=== PATIENT | male | born 1995 | race Caucasian/White ===

== ENCOUNTER 2016-09-27 05:35 | Outpatient (CLI) | payer BC ==
[~2016-09-27] VITALS: Ht 185.4 cm; Wt 103.9 kg
[2016-09-27] MEDS ORDERED: DIPH25CA79 PO (09:53)
[2016-09-27 09:55] VITALS: BP 127/79
[2016-09-27 10:17] LABS: BASOPHILS % (AUTO) 1 % (0-10); EOSINOPHILS # (AUTO) 0.1 10^3/uL (0.0-0.3); EOSINOPHILS % (AUTO) 2 % (0-10); LYMPHOCYTES # (AUTO) 2.1 X 10^3 (1.0-4.0); LYMPHOCYTES % (AUTO) 32 % (12-44); MEAN CORPUSCULAR HEMOGLOBIN 27 PG (25-34); MEAN CORPUSCULAR HGB CONC 34 G/DL (32-36); MEAN CORPUSCULAR VOLUME 81 FL (80-99); MEAN PLATELET VOLUME 9.9 FL (7.4-10.4); MONOCYTES # (AUTO) 0.7 X 10^3 (0.0-1.0); MONOCYTES % (AUTO) 11 % (0-12); NEUTROPHILS # (AUTO) 3.5 X 10^3 (1.8-7.8); NEUTROPHILS % (AUTO) 54 % (42-75); PLATELET COUNT 333 10^3/uL (130-400); RED BLOOD COUNT 5.86 10^6/uL (4.35-5.85); RED CELL DISTRIBUTION WIDTH 13.2 % (10.0-14.5); WHITE BLOOD COUNT 6.5 10^3/uL (4.3-11.0)
== END 2016-09-27 13:10 | disposition home or self-care (01) ==
LOC: PREOP 05:35
PROVIDERS: ATTEND Surgery Pediatric Surgery
DX: Z01.812 Encounter for preprocedural laboratory examination (principal); Z11.2 Encounter for screening for other bacterial diseases; K40.90 Unilateral inguinal hernia, without obstruction or gangrene, not specified as recurrent
CPT/HCPCS: 36415; 85025; 87081

== ENCOUNTER 2016-09-29 10:15 | Day surgery (SDC) | payer BC ==
[~2016-09-29] VITALS: Ht 185.4 cm; Wt 103.9 kg
[~2016-09-29 10:15] MED LIST: DIPH25CA79 PO
[2016-09-29 10:30] VITALS: BP 135/85
[2016-09-29] MEDS ORDERED: ceFAZolin 1 GM/NS 50 ML IVPB IV ONE ×2 (11:00)
[2016-09-29] MEDS ORDERED: BUP/EPI 0.25% 1:200,000 (MARCAINE) 30 ML VIAL ONE (12:18)
[2016-09-29] MEDS ORDERED: ROCURONIUM 50 MG/5 ML (ZEMURON) VIAL IV ONE ×2 (12:48→14:36)
[2016-09-29] MEDS ORDERED: MIDAZOLAM 2 MG/2 ML (VERSED) VIAL ONE (12:48)
[2016-09-29] MEDS ORDERED: fentaNYL INJECTION 250 MCG/5 ML AMP ONE (12:48)
[2016-09-29] MEDS ORDERED: proPOfol 200 MG/20 ML (DIPRIVAN) VIAL IV ONE (12:48)
[2016-09-29] MEDS: LACTATED RINGERS 1,000 ML IV PRN ×3 (12:51→15:09)
--- NOTE | 2016-09-29 13:24 | Progress Note-Pre Operative ---
Pre-Operative Progress Note H&P Reviewed The H&P was reviewed, patient examined and no changes noted. Date H&P Reviewed: Sep 29, 2016 Time H&P Reviewed: 13:00 Pre-Operative Diagnosis: symptomatic left inguinal hernia OSCAR COHEN MD Sep 29, 2016 1:24 pm
[2016-09-29] MEDS ORDERED: morphine INJ 10 MG/ML 1ML (SYR OR VIAL) IVP PRN (13:30)
[2016-09-29] MEDS ORDERED: ACETAMINOPHEN 325 MG TABLET/CAPLET (TYLENOL) PO PRN (13:30)
[2016-09-29] MEDS ORDERED: oxyCODONE/APAP 5/325MG (PERCOCET 5) TABLET PO PRN (13:30)
[2016-09-29] MEDS ORDERED: ONDANSETRON 4 MG/2 ML (SDV) Z0FRAN IVP PRN ×2 (13:30→15:30)
[2016-09-29] MEDS ORDERED: SEVOFLURANE (ULTANE) 15 ML INHAL SOLN ONE ×2 (13:47→15:07)
[2016-09-29] MEDS ORDERED: LACTATED RINGERS 2,000 ML IV ONE (13:47)
[2016-09-29] MEDS ORDERED: ONDANSETRON 4 MG/2 ML (SDV) Z0FRAN ONE ×2 (13:47→14:45)
[2016-09-29] MEDS ORDERED: MEPERIDINE (DEMEROL) INJ 50 MG/ML ONE (14:45)
[2016-09-29] MEDS ORDERED: morphine INJ 10 MG/ML 1ML (SYR OR VIAL) ONE (14:45)
[2016-09-29] MEDS ORDERED: GLYCOPYRROLATE 0.2 MG/ML (ROBINUL) 2 ML VIAL ONE (14:53)
[2016-09-29] MEDS ORDERED: NEOSTIGMINE (BLOXIVERZ ) 1 MG/1ML 10 ML VIAL ONE (14:53)
--- NOTE | 2016-09-29 15:01 | Progress Note-Post Operative ---
Post-Operative Progess Note Surgeon (s)/Health Economist (s) Surgeon OSCAR COHEN MD Health Economist: gayle chaves [employer] Pre-Operative Diagnosis symptomatic right inguinal hernia Post-Operative Diagnosis same(indirect) Post-Op Procedure Note Date of Procedure: Sep 29, 2016 Name of Procedure Performed: laparoscopic right inguinal hernia repair with mesh. Description of the Procedure: laparoscopic right inguinal hernia repair with mesh. Findings of the Procedure . Anesthesia Type GET Estimated blood loss (mL): minimal Specimen(s) collected/removed none OSCAR COHEN MD Sep 29, 2016 3:01 pm
[2016-09-29] MEDS ORDERED: HYDR-3730 PO (15:02)
--- NOTE | 2016-09-29 15:03 | Discharge Inst-Surgical ---
D/C Lap Instructions-VICKI New, Converted, or Re-Newed RX: RX on Chart Follow Up Appt in 2 weeks Activity as tolerated No driving for 24 hours No driving while on pain medications Incentive Spirometry use every 2 hours while awake Regular Diet Symptoms to Report: Fever over 101 degree F, Nausea/Vomiting Infection Signs and Symptoms to report: Increased redness, Foul odor of wound, Increased drainage Bathing instructions: May shower Operative Area Clean/Dry; Keep incision clean/dry If any problems/questions: Contact your physician or go to Emergency Room OSCAR COHEN MD Sep 29, 2016 3:03 pm
[2016-09-29] MEDS ORDERED: LACTATED RINGERS 1,000 ML IV ONE (15:07)
[2016-09-29] MEDS: morphine INJ 10 MG/ML 1ML (SYR OR VIAL) IVP PRN ×3 (15:27→15:38)
[2016-09-29] MEDS ORDERED: KETOROLAC 30 MG/ML VIAL IVP ONE (15:30)
[2016-09-29] MEDS ORDERED: MEPERIDINE (DEMEROL) INJ 50 MG/ML IVP PRN (15:30)
[2016-09-29] MEDS ORDERED: fentaNYL INJECTION 100 MCG/2 ML AMP IVP PRN (15:30)
[2016-09-29] MEDS ORDERED: HYDROmorphone (DILAUDID) 2 MG/ML VIAL IVP PRN (15:30)
[2016-09-29] MEDS ORDERED: HYDROmorphone (DILAUDID) 2 MG/ML VIAL ONE (15:37)
[2016-09-29 16:10] VITALS: BP 134/74
[2016-09-29 16:40] VITALS: BP 133/74
[2016-09-29 17:00] VITALS: BP 128/73
[2016-09-29 17:15] VITALS: BP 128/73
--- NOTE | 2016-09-30 10:28 | OPERATIVE REPORT ---
PROCEDURE PHYSICIAN: OSCAR COHEN DATE OF PROCEDURE: 09/29/2016 ATTENDING PRIMARY CARE PHYSICIAN: Dr. Carson. BRIEF HISTORY: Mr. Nazario Feliciano is a 20-year-old male who is referred over to us for pain and swelling, as well as a palpable bulge in the right inguinal region. He reports the symptoms have been here for the past 5 years. However in the last month it has become significantly larger in size and more painful. Upon examination, he was found to have a significant bulge emanating from the inguinal ligament that went into the scrotum. This was reducible; however, tender to palpation. He states he is otherwise doing well and tolerating a regular diet and having normal bowel movements. PROCEDURE: The patient was brought to the operating room and laid supine on the table. After adequate IV pain and sedative medications and general endotracheal intubation the abdomen and perineum were prepped and draped in standard surgical fashion. 0.5% Marcaine with epinephrine was used to anesthetize the infraumbilical rim and a small crescent shaped skin incision made using a 15 blade. A towel clamp was used to retract the abdominal wall anteriorly and a Veress needle inserted with a low opening pressure of 0 mmHg. The abdomen was insufflated to 15 mmHg pressure. The Veress needle removed and a 5 mm Xcel trocar placed followed by a 5 mm, 45 degrees angle laparoscope, visualizing the peritoneal cavity. A four-quadrant abdominal exploration was performed. There was a right indirect inguinal hernia with omentum incarcerated within the hernia sac. There was no left inguinal hernia component. Under direct visualization we then proceeded to place bilateral 5 mm ports after the skin and peritoneum were anesthetized using 0.5% Marcaine with epinephrine and a transverse skin incision made using a 15 blade. The patient was then placed in Trendelenburg position. The omentum was then reduced out and the attachments to the peritoneal lining were taken down using Sonicision. We then proceeded with opening of the peritoneal lining starting laterally and dissected further laterally and inferior to the conjoined tendon and inguinal ligament. We then proceeded medially until Richard's ligament identified. We then proceeded with dissection of the hernia sac. The majority of the hernia sac was reduced, however, this was extensive and went into the testicle and so we left the peritoneal lining in situ, Good hemostasis was observed. We then proceeded with inferior dissection further. The cord and its contents were identified and preserved throughout the process. Good hemostasis was also observed. A 3-D max polypropylene mesh was then placed through the 10 mm port. The abdomen was desufflated and the remaining ports removed. All skin incisions were closed using 4-0 Monocryl running subcuticular sutures. Wounds were then cleaned and covered Dermabond. The patient tolerated the procedure well. We will start IV and oral pain medication as well as a clear liquid diet. Once he is tolerating clears, has good pain control with oral pain medication, we will discharge him home. He will be instructed no heavy lifting or exertion for the next 6 weeks. Job ID: [id number] Dictated Date: 09/29/2016 15:09:35 Mail Superintendent Date: 09/30/2016 10:16:53 / dora NORMAN
== END 2016-09-29 17:15 | disposition home or self-care (01) ==
LOC: SDC 10:15
PROVIDERS: ATTEND Surgery Pediatric Surgery
DX: K40.30 Unilateral inguinal hernia, with obstruction, without gangrene, not specified as recurrent (principal)
CPT/HCPCS: 94664